=== PATIENT | female | born 1960 | race Two or more races ===

== ENCOUNTER → 2019-03-16 | Outpatient (CLI) | payer OTHER | END | disposition home or self-care (01) | LOC: NUCLEAR 10:00 | DX: I20.1 Angina pectoris with documented spasm (principal) ==

== ENCOUNTER 2021-11-03 16:23 | Emergency (ER) | payer OTHER ==
[~2021-11-03] VITALS: Ht 152.4 cm; Wt 89.4 kg
[2021-11-03] MEDS ORDERED: METOPROLOL SUCC50 MG PO (17:04)
[2021-11-03] MEDS ORDERED: PROAIR HFA8.5 GM IH (17:04)
[2021-11-03] MEDS ORDERED: SYNTHROID75 MCG PO (17:04)
[2021-11-03] MEDS ORDERED: VENTOLIN HFA18 GM (17:05)
[2021-11-03] MEDS ORDERED: BACTRIM DS TAB1 EACH PO (20:34)
== END 2021-11-03 20:45 | disposition home or self-care (01) ==
LOC: ER 16:23
DX: N39.0 Urinary tract infection, site not specified (principal)

== ENCOUNTER 2023-06-06 11:07 | Emergency (ER) | payer OTHER ==
[~2023-06-06] VITALS: Ht 152.4 cm; Wt 90.7 kg
[~2023-06-06 11:07] MED LIST: BACTRIM DS TAB1 EACH PO; METOPROLOL SUCC50 MG PO; PROAIR HFA8.5 GM IH; SYNTHROID75 MCG PO; VENTOLIN HFA18 GM
[2023-06-06] MEDS ORDERED: PLAVIX75 MG PO (11:14)
[2023-06-06] MEDS ORDERED: ESCITALOPRAM OX10 MG PO (11:14)
[2023-06-06 13:07] LABS: HEMATOCRIT 41.8 % (36.0-45.00); HEMOGLOBIN 14.2 g/dL (12.0-15.00); MEAN CELL VOLUME 94.6 fL (80.00-100.00); MEAN CORPUSCULAR HGB CONC 33.8 g/dl (32.0-36.0); PLATELET COUNT 210 K/uL (150-450); RED BLOOD COUNT 4.42 M/uL (4.00-6.00); RED CELL DISTRIBUTION WIDTH 13.1 % (11.5-14.5)
[2023-06-06] MEDS ORDERED: TUSSIN100 MG/51 PO (13:20)
[2023-06-06] MEDS ORDERED: ALBUTEROL1.25 MG/3 IH (13:20)
[2023-06-06] MEDS ORDERED: MEDROLPACK PO (13:20)
[2023-06-06] MEDS ORDERED: ZITHROMAX TRI-500 MG PO (13:20)
== END 2023-06-06 13:27 | disposition home or self-care (01) ==
LOC: ER 11:08
PROVIDERS: General Practice
DX: B34.9 Viral infection, unspecified (principal); J06.9 Acute upper respiratory infection, unspecified; R53.81 Other malaise; R05.9 Cough, unspecified; Z20.822 Contact with and (suspected) exposure to COVID-19; I10 Essential (primary) hypertension